=== PATIENT | female | born 1995 | race Caucasian/White ===

== ENCOUNTER 2018-07-29 08:32 | Inpatient (IN) | payer OTHER ==
[2018-07-29] MEDS: CEFAZOLIN 2 GM/50 ML (PMX) 50 ML IVPB ×3 (02:00→18:19)
[2018-07-29] MEDS ORDERED: LACTATED RINGER'S 1,000 ML IV (09:09)
[2018-07-29] MEDS: LACTATED RINGER'S 1,000 ML IV ×3 (09:16→12:51)
[2018-07-29 09:22] LABS: ADD MAN DIFF? NO
[2018-07-29 09:25] LABS: BASOPHILS % 0.2 % (0.0-2.0); EOSINOPHILS # 0.1 10^3/ul (0.0-0.5); EOSINOPHILS % 0.5 % (0.0-7.0); HEMATOCRIT 37.5 % (37.0-47.0); HEMOGLOBIN 12.2 g/dl (12.0-16.0); LYMPHOCYTES # 2.6 10^3/ul (0.8-2.9); LYMPHOCYTES % 27.5 % (15.0-51.0); MEAN CORPUSCULAR HEMOGLOBIN 29.1 pg (29.0-33.0); MEAN CORPUSCULAR HGB CONC 32.5 g/dl (32.0-37.0); MEAN CORPUSCULAR VOLUME 89.5 fl (82.0-101.0); MEAN PLATELET VOLUME 11.7 fl (7.4-10.4); MONOCYTE # 0.6 10^3/ul (0.3-0.9); MONOCYTES % 6.3 % (0.0-11.0); PLATELET COUNT 225 10^3/UL (140-415); RED BLOOD COUNT 4.19 10^6/ul (4.20-5.40); RED CELL DISTRIBUTION WIDTH 13.3 % (11.5-14.5)
[2018-07-29 09:25] LABS: WHITE BLOOD COUNT 9.3 10^3/ul (4.8-10.8)
[2018-07-29] MEDS ORDERED: MISOPROSTOL 200 MCG TAB PR ×2 (09:30→13:00)
[2018-07-29] MEDS ORDERED: METHYLERGONOVINE 0.2 MG INJ IM ×2 (09:30→13:00)
[2018-07-29] MEDS ORDERED: LIDOCAINE 1% (MPF) 30 ML INJ INJ (09:30)
[2018-07-29] MEDS ORDERED: CARBOPROST 250 MCG INJ IM ×2 (09:30→13:00)
[2018-07-29] MEDS ORDERED: OXYTOCIN 30 UNITS/LR 500 ML IV ×5 (09:30→13:05)
[2018-07-29 09:44] LABS: INR 0.89; PROTIME 12.2 Sec (11.9-14.9)
[2018-07-29 09:45] LABS: PARTIAL THROMBOPLASTIN TIME 26.9 Sec (23.0-35.0)
[2018-07-29] MEDS: MINERAL OIL LIGHT 10 ML VIAL TOP (10:00)
[2018-07-29] MEDS ORDERED: IBUPROFEN 600 MG TAB PO (10:00)
[2018-07-29 11:35] LABS: HEPATITIS B SURFACE ANTIGEN NEGATIVE (NEGATIVE)
[2018-07-29] MEDS ORDERED: morphine SULFATE/PF (10 MG/10 ML) INJ (11:45)
[2018-07-29] MEDS ORDERED: OXYTOCIN 10 UNIT INJ (11:45)
[2018-07-29] MEDS ORDERED: ONDANSETRON 4 MG INJ (11:45)
[2018-07-29] MEDS ORDERED: PHENYLephrine 10 MG INJ (11:46)
[2018-07-29] MEDS: OXYTOCIN 30 UNITS/LR 500 ML IV ×3 (12:51→18:22)
[2018-07-29] MEDS ORDERED: METHYLERGONOVINE 0.2 MG TAB PO (13:00)
[2018-07-29] MEDS ORDERED: NA PHOSPHATE/BIPHOS 133 ML ENEMA PR (13:00)
[2018-07-29] MEDS ORDERED: HYDROCODONE/APAP (5/325) TAB PO (13:00)
[2018-07-29] MEDS ORDERED: MISOPROSTOL 50 MCG CAPSULE VAG (13:00)
[2018-07-29] MEDS ORDERED: KETOROLAC 30 MG INJ IV (14:30)
[2018-07-29] MEDS ORDERED: NALOXONE (0.4 MG/ML) INJ IV (14:30)
[2018-07-29] MEDS ORDERED: morphine 2 MG INJ IV (14:30)
[2018-07-29] MEDS ORDERED: DIPHENHYDRAMINE 50 MG INJ IV (14:30)
[2018-07-29] MEDS: KETOROLAC 30 MG INJ IV ×3 (14:36→23:03)
[2018-07-29 20:54] LABS: RAPID PLASMA REAGIN NONREACTIVE (NR)
[2018-07-29] MEDS: SENNA/DOCUSATE NA (8.6MG/50MG) TAB PO (21:00)
[2018-07-30] MEDS: OXYTOCIN 30 UNITS/LR 500 ML IV ×2 (02:16→06:17)
[2018-07-30] MEDS: CEFAZOLIN 2 GM/50 ML (PMX) 50 ML IVPB ×2 (02:54→09:38)
[2018-07-30] MEDS: KETOROLAC 30 MG INJ IV ×3 (06:16→18:19)
[2018-07-30 08:33] LABS: ADD MAN DIFF? NO
[2018-07-30 08:37] LABS: WHITE BLOOD COUNT 9.7 10^3/ul (4.8-10.8)
[2018-07-30 08:37] LABS: BASOPHILS % 0.2 % (0.0-2.0); EOSINOPHILS % 0.1 % (0.0-7.0); HEMATOCRIT 30.9 % (37.0-47.0); HEMOGLOBIN 10.1 g/dl (12.0-16.0); LYMPHOCYTES # 1.4 10^3/ul (0.8-2.9); LYMPHOCYTES % 14.4 % (15.0-51.0); MEAN CORPUSCULAR HEMOGLOBIN 29.5 pg (29.0-33.0); MEAN CORPUSCULAR HGB CONC 32.7 g/dl (32.0-37.0); MEAN CORPUSCULAR VOLUME 90.4 fl (82.0-101.0); MEAN PLATELET VOLUME 11.7 fl (7.4-10.4); MONOCYTE # 0.8 10^3/ul (0.3-0.9); MONOCYTES % 7.9 % (0.0-11.0); NEUTROPHIL # 7.5 10^3/ul (1.6-7.5); PLATELET COUNT 181 10^3/UL (140-415); RED BLOOD COUNT 3.42 10^6/ul (4.20-5.40); RED CELL DISTRIBUTION WIDTH 13.3 % (11.5-14.5)
[2018-07-30] MEDS: SENNA/DOCUSATE NA (8.6MG/50MG) TAB PO ×2 (09:37→21:36)
[2018-07-30] MEDS: HYDROCODONE/APAP (5/325) TAB PO (18:20)
[2018-07-30] MEDS: IBUPROFEN 800 MG TAB PO (21:37)
[2018-07-31] MEDS ORDERED: IBUPROFEN 800 MG TAB PO (01:00)
[2018-07-31] MEDS: IBUPROFEN 800 MG TAB PO ×3 (05:34→21:58)
[2018-07-31] MEDS: SENNA/DOCUSATE NA (8.6MG/50MG) TAB PO ×2 (09:08→21:57)
[2018-07-31] MEDS: LANOLIN HPA 1 PKT TOP (09:11)
[2018-07-31] MEDS: HYDROCODONE/APAP (5/325) TAB PO (11:55)
[2018-08-01] MEDS: IBUPROFEN 800 MG TAB PO ×2 (05:46→13:03)
[2018-08-01] MEDS: SENNA/DOCUSATE NA (8.6MG/50MG) TAB PO (09:00)
[2018-08-01] MEDS: MEASLES,MUMPS,RUBELLA VACCINE INJ SC* (09:00)
[2018-08-01] MEDS: DIPHTH/TET/ACEL PERTUSS (ADULT) 0.5 ML VIAL IM* (10:43)
== END 2018-08-01 13:46 | disposition home or self-care (01) | DRG 788 ==
LOC: L-D 08:32 → PP1 15:10
PROVIDERS: Obstetrics & Gynecology
PROC: 10D00Z1 Extraction of Products of Conception, Low, Open Approach (ICD-10-PCS; principal; 2018-07-29 11:30)
DX: O33.5XX0 Maternal care for disproportion due to unusually large fetus, not applicable or unspecified (principal); Z3A.40 40 weeks gestation of pregnancy; Z37.0 Single live birth; Z23 Encounter for immunization
CPT/HCPCS: 76815; 76818; 85025; 85610; 85730; 86592; 86850; 86900; 86901; 87340; 90715; 99464